=== PATIENT | female | born 1940 | race Two or more races ===

== ENCOUNTER 2016-05-30 13:15 | Inpatient (IN) | payer MEDICARE, MEDICAID ==
[~2016-05-30] VITALS: Ht 152.4 cm; Wt 80.8 kg
[~2016-05-30 13:15] MED LIST: ACET160S PO; ATOR20TA PO; CHOL10002 PO; CLON0.5T PO; DOCU-270 PO; HYDR-4077 PO; INSU100I4 SQ; INSU100V10 SQ; LORA1TAB82 PO; METO5TAB87 PO; MIRT15TA PO; OMEP40CA37 PO; SENN8.6T6 PO; SEVE800T8 PO; VIT1TABL44 PO; ZOLP10TA2 PO
--- NOTE | 2016-05-30 13:15 | NUR ---
BIB EMS C/O L SIDED CHEST PAIN X 3 DAYS PER DAUGHTER. NAD NOTED. PT MOZAMBICAN SPEAKER, AAO X3, RR EVEN AND UNLABORED. PT PLACED IN MONITOR. DR MANNING AT BEDSIDE FOR EVAL.
[2016-05-30 13:59] LABS: BASOPHILS # (AUTO) 0.1 /CMM (0.0-0.2); BASOPHILS % (AUTO) 1.5 % (0.0-2.0); EOSINOPHILS # (AUTO) 0.2 /CMM (0.0-0.7); EOSINOPHILS % (AUTO) 2.2 % (0.0-6.0); HEMATOCRIT 35 % (33-45); HEMOGLOBIN 11.4 g/dL (11.5-14.8); LYMPHOCYTES # (AUTO) 1.6 /CMM (0.8-4.8); LYMPHOCYTES % (AUTO) 21.4 % (20.0-44.0); MEAN CORPUSCULAR HEMOGLOBIN 33 PG (26.0-33.0); MEAN CORPUSCULAR HGB CONC 33 g/dl (31.0-36.0); MEAN CORPUSCULAR VOLUME 100 fL (82-100); MONOCYTES # (AUTO) 0.7 /CMM (0.1-1.30); MONOCYTES % (AUTO) 9.5 % (2.0-12.0); NEUTROPHILS # (AUTO) 4.8 /CMM (1.8-8.9); NEUTROPHILS % (AUTO) 65.4 % (43.0-81.0); PLATELET COUNT (AUTO) 171 /CMM (150-450); RDW COEFFICIENT OF VARIATION 15.4 (11.5-15.0); RED BLOOD CELL COUNT(AUTO) 3.49 MIL/uL (4.0-5.2); WHITE BLOOD COUNT (AUTO) 7.4 K/uL (4.3-11.0)
[2016-05-30 14:14] LABS: CALCIUM, SERUM 8.7 mg/dL (8.5-10.1); CARBON DIOXIDE 30 mmol/L (21-32); CHLORIDE 100 mmol/L (98-107); CREATININE 4.1 mg/dL (0.6-1.3); GLUCOSE 87 mg/dL (74-106); POTASSIUM 4.8 mmol/L (3.5-5.1); SODIUM SERUM 135 mmol/L (136-145); UREA NITROGEN, BLOOD 54 mg/dL (7-18)
[2016-05-30 14:16] LABS: INR 0.95 (0.87-1.13); PROTHROMBIN TIME 9.9 SECS (9.5-12.7)
[2016-05-30 14:24] LABS: TROPONIN I < 0.017 ng/mL (0.00-0.056)
--- NOTE | 2016-05-30 15:10 | NUR ---
PAGED DR JONATHON BRAUN
--- NOTE | 2016-05-30 15:38 | NUR ---
REPAGED DR JONATHON BRAUN.
[2016-05-30] MEDS ORDERED: IV SET PRIMARY PUMP SET 1 EA INFUS.SET MC ONE (15:57)
[2016-05-30] MEDS ORDERED: CEFTRIAXONE 1GM BAG (ER ONLY) 50 ML IV ONE (15:57)
[2016-05-30] MEDS ORDERED: AZITHROMYCIN 500 MG in IV D5W 250 ML IV ONE (16:00)
[2016-05-30] MEDS ORDERED: CEFTRIAXONE 1 G in IV D5W 50 ML IV ONE (16:00)
--- NOTE | 2016-05-30 16:14 | NUR ---
Mariella khoury in [facility] - 05/30/16 at 1619 by OZZY PATIENT ASSIGNED TO [facility] 311-1 ADMITTING DX PNEUMONIA, ACCEPTED BY DR HARRY KEANRS
--- NOTE | 2016-05-30 16:15 | NUR ---
PATIENT ASSIGNED TO TELE 311-1 ADMITTING DX PNEUMONIA, ACCEPTED BY DR JONATHON BRAUN
--- NOTE | 2016-05-30 16:24 | NUR ---
REPORT GIVEN TO LONI CAMPBELL FOR DEL
[2016-05-30] MEDS ORDERED: AMIN887L PO (16:57)
[2016-05-30] MEDS ORDERED: CHOL100030 PO (17:07)
[2016-05-30] MEDS ORDERED: MELA3TAB PO (17:07)
[2016-05-30] MEDS ORDERED: TRAM50TA2 PO (17:07)
[2016-05-30] MEDS ORDERED: NUT.237L67 PO (17:07)
[2016-05-30 17:30] VITALS: BP 107/52
--- NOTE | 2016-05-30 18:15 | NUR ---
PT. BROUGHT UP FROM ER.ORIENTED TO RM.HOOKED UP TO TELE-RHYTHM SINUS RATE OF 75.AZITHROMYCIN PIGGY BACK IV RESET IN PUMP.NOTED FEW PINK SPOTS ON BUTTOCKS CHEEKS-APPARENTLY HEALED SCARS AND BRUISING ON ARMS.SIDE RAILS UP AND CALL LIGHT IN PLACE.PT. YI SPEAKING.TEXTED DR. BRAUN FOR ORDERS WELL MED ORDERS.NO TEXT BACK, OF YET.
--- NOTE | 2016-05-30 18:20 | NUR ---
PT. WITH TRACH WITH PMV IN PLACE AND PT. TALKING.
--- NOTE | 2016-05-30 19:20 | NUR ---
PT. ENDORSED TO ANDREA. SHANNAN JIMÉNEZ.
--- NOTE | 2016-05-30 19:30 | NUR ---
WATER RESOURCE ENGINEERING SPECIALIST OPENING NOTES: RECEIVED PATIENT AWAKE IN BED. FAMILY AT BEDSIDE. SINUS RHYTHM 76. A/O X3. RIGHT IV AC#20 INTACT AND PATENT. KEPT CLEAN, DRY, AND COMFORTABLE. N/C 3LPM AND TOLERATED WELL. RECEIVED ADMISSION HISTORY FROM FAMILY MEMBER (DAUGHTER). CALL LIGHT WITHIN PT REACH. SIDE RAILS UP X2. WILL CONTINUE TO MONITOR PATIENT.
[2016-05-30 20:00] VITALS: BP 123/54
--- NOTE | 2016-05-30 20:11 | NUR ---
MS TELE NOTES: SPOKE TO VICTORINA ARTEAGA AND RECEIVED ADMISSION ORDER. ORDER NOTED AND CARRIED OUT.
[2016-05-30] MEDS ORDERED: DEXTROSE 50%-WATER 50 ML DISP.SYRIN IV PRN (20:30)
[2016-05-30] MEDS ORDERED: hydrALAZINE HCL 50 MG TABLET PO SCH ×2 (20:30→21:00)
[2016-05-30] MEDS ORDERED: PROSOURCE / PROSTAT (PYXIS) 30 ML UDC ONE (21:52)
[2016-05-30] MEDS: RENAL NOVASOURCE (8OZ) 1 EA BOX PO SCH (21:56)
[2016-05-30] MEDS: clonazePAM 0.5 MG TABLET PO SCH (21:57)
[2016-05-30] MEDS: ATORVASTATIN 40 MG TABLET PO SCH (21:57)
[2016-05-30] MEDS: METOCLOPRAMIDE HCL 10 MG TABLET PO SCH (21:57)
[2016-05-30] MEDS: MIRTAZAPINE 15 MG TABLET PO SCH (21:57)
[2016-05-30] MEDS: hydrALAZINE HCL 50 MG TABLET PO SCH (21:58)
[2016-05-30] MEDS: SENNOSIDES 8.6 MG TABLET PO SCH (21:59)
[2016-05-30] MEDS: PROSOURCE / PROSTAT (PYXIS) 30 ML UDC PO SCH (22:00)
[2016-05-30] MEDS ORDERED: Medication Not On Formulary EA (Melatonin 3 MG) PO SCH (22:00)
[2016-05-30] MEDS: BLOOD SUGAR DIAGNOSTIC 1 EACH STRIP IN SCH (22:02)
[2016-05-30] MEDS: INSULIN DETEMIR 100 UNIT/ML CARTRIDGE SQ SCH (22:14)
[2016-05-30] MEDS: TRAMADOL HCL 50 MG TABLET PO PRN (22:24)
--- NOTE | 2016-05-30 22:24 | NUR ---
MS SHIPLEY RN NOTE: PT RECEIVED ULTRAM 50MG D/T COMPLAINTS OF PAIN IN THE ABDOMEN. VITAL SIGNS STABLE.
[2016-05-30] MEDS ORDERED: ALBUTEROL FS 2.5 MG/0.5 ML VIAL.NEB NEB SCH ×2 (22:30→23:30)
--- NOTE | 2016-05-30 22:51 | NUR ---
MS TELE NOTE: SPOKE TO VICTORINA ARTEAGA. GOT PAIN MEDICATION ORDER. ORDER NOTED AND CARRIED OUT.
[2016-05-30] MEDS ORDERED: IBUPROFEN 600 MG TABLET PO PRN (23:30)
[2016-05-30] MEDS ORDERED: ACETAMINOPHEN 325 MG TABLET PO PRN (23:30)
[2016-05-31] VITALS: BP 126/56
[2016-05-31] MEDS: LORAZEPAM 1 MG TABLET PO PRN ×2 (00:05→14:32)
[2016-05-31] MEDS ORDERED: ALBUTEROL FS 2.5 MG/0.5 ML VIAL.NEB ONE (03:13)
[2016-05-31] MEDS: ALBUTEROL FS 2.5 MG/0.5 ML VIAL.NEB NEB SCH ×6 (03:42→23:06)
[2016-05-31 04:00] VITALS: BP 110/48
[2016-05-31] MEDS: METOCLOPRAMIDE HCL 10 MG TABLET PO SCH ×3 (05:48→21:38)
[2016-05-31] MEDS: BLOOD SUGAR DIAGNOSTIC 1 EACH STRIP IN SCH ×4 (05:56→22:21)
[2016-05-31 06:40] LABS: BASOPHILS # (AUTO) 0.1 /CMM (0.0-0.2); BASOPHILS % (AUTO) 0.7 % (0.0-2.0); EOSINOPHILS # (AUTO) 0.2 /CMM (0.0-0.7); EOSINOPHILS % (AUTO) 2.4 % (0.0-6.0); HEMATOCRIT 33 % (33-45); HEMOGLOBIN 10.6 g/dL (11.5-14.8); LYMPHOCYTES # (AUTO) 2.1 /CMM (0.8-4.8); LYMPHOCYTES % (AUTO) 24.5 % (20.0-44.0); MEAN CORPUSCULAR HEMOGLOBIN 32 PG (26.0-33.0); MEAN CORPUSCULAR HGB CONC 32 g/dl (31.0-36.0); MEAN CORPUSCULAR VOLUME 101 fL (82-100); MONOCYTES % (AUTO) 11.4 % (2.0-12.0); NEUTROPHILS # (AUTO) 5.2 /CMM (1.8-8.9); PLATELET COUNT (AUTO) 173 /CMM (150-450); RDW COEFFICIENT OF VARIATION 16.1 (11.5-15.0); RED BLOOD CELL COUNT(AUTO) 3.28 MIL/uL (4.0-5.2); WHITE BLOOD COUNT (AUTO) 8.5 K/uL (4.3-11.0)
--- NOTE | 2016-05-31 06:41 | NUR ---
MS SHIPLEY RN CLOSING NOTES: PT A/O X3. PT ON AEROSOL 4LPM AND TOLERATED WELL. PT ON SINUS RHYTHM 76. ALL NEEDS WERE ATTENDED TO. KEPT CLEAN, DRY, AND COMFORTABLE. PT'S BED IN LOCKED, LOWEST POSITION, AND SIDE RAILS X2. R AC #20 IV PATENT AND INTACT. WILL ENDORSE TO DAY SHIFT NURSE.
[2016-05-31 07:09] LABS: THYROID STIMULATING HORMONE 2.233 uIU/mL (0.358-3.74)
--- NOTE | 2016-05-31 07:10 | NUR ---
TELE/RN AM NOTES RECEIVED PATIENT IN BED, AWAKE, ALERT, WITHOUT SOB, NO DISTRESS NOTED, HOB HIGH FOWLERS POSITION, T-PIECE INTACT WITH OXYGEN 5L/M, 28%, TOLERATING WELL 99%. IV LINE INTACT ON RAC, PATENT. AV FISTULA INTACT, WITH BRUIT AND THRILL. NO S/SX BLEEDING NOTED. BED IN LOW POSITION, COMFORTABLE, WITH CALL LIGHT WITHIN EASY REACH. WILL CONTINUE TO MONITOR ACCORDINGLY.
--- NOTE | 2016-05-31 07:30 | NUR ---
MS/RN CLOSING NOTES PATIENT IN BED, AWAKE, ALERT, WITHOUT SOB, NO DISTRESS NOTED, HOB HIGH FOWLERS POSITION, T-PIECE INTACT WITH OXYGEN 5L/M, 28%, TOLERATING WELL 99%. IV LINE INTACT ON RAC, PATENT. AV FISTULA INTACT, WITH BRUIT AND THRILL. NO S/SX BLEEDING NOTED. BED IN LOW POSITION, COMFORTABLE, TURNED REPOSITIONED EVERY 2 HOURS, WOUND TREATMENT DONE, KEPT CLEAN DRY, COMFORTABLE WITH CALL LIGHT WITHIN EASY REACH. WITH CALL LIGHT WITHIN EASY REACH. ENDORSED TO THE CONTRACT MAIL CARRIER NURSE ACCORDINGLY.
[2016-05-31 08:00] VITALS: BP 116/49
[2016-05-31] MEDS: PANTOPRAZOLE 40 MG TABLET.DR PO SCH (08:24)
[2016-05-31] MEDS: DOCUSATE SODIUM 100 MG CAPSULE PO SCH (08:24)
[2016-05-31] MEDS: clonazePAM 0.5 MG TABLET PO SCH ×2 (08:24→21:38)
[2016-05-31] MEDS: VIT B CMPLX 3/FA/VIT C/BIOTIN 1 TAB TABLET PO SCH (08:24)
[2016-05-31] MEDS: CHOLECALCIFEROL 1,000 UNIT TABLET (VIT D3) PO SCH (08:24)
[2016-05-31] MEDS: PROSOURCE / PROSTAT (PYXIS) 30 ML UDC PO SCH ×3 (08:24→17:43)
[2016-05-31] MEDS: hydrALAZINE HCL 50 MG TABLET PO SCH ×2 (08:29→21:37)
[2016-05-31] MEDS: INSULIN DETEMIR 100 UNIT/ML CARTRIDGE SQ SCH ×2 (08:37→21:43)
[2016-05-31] MEDS: CEFTRIAXONE 1 G in IV D5W 50 ML IV SCH (09:16)
[2016-05-31] MEDS: RENAL NOVASOURCE (8OZ) 1 EA BOX PO SCH ×2 (09:16→17:46)
[2016-05-31] MEDS: TRAMADOL HCL 50 MG TABLET PO PRN ×2 (09:17→16:06)
--- NOTE | 2016-05-31 11:14 | NUR ---
DIALYSES DONE, PATIENT IN STABLE CONDITION, 1500 ML FLUID REMOVED
[2016-05-31 12:00] VITALS: BP 118/56
[2016-05-31] MEDS: INSULIN ASPART NOVOLOG 100 UNIT/ML CARTRIDGE SQ PRN ×2 (12:38→17:50)
--- NOTE | 2016-05-31 13:58 | NUR ---
WOUND CARE CONSULT:PATIENT SEEN AND SKIN ASSESSMENT DONE. TRACH VENT PATIENT, ALERT, INCONTINENT OF STOOLS, UNABLE TO TURN AND REPOSITION SELF IN BED, SHUN 14, KEY ISOFLEX LEV BED ORDERED BY NURSING STAFF AND WILL BE PLACED WHEN AVAILABLE IN THE UNIT. SEE SKIN ASSESSMENT FOR TODAY ALONG WITH RECOMMENDATIONS. RECOMMEND MOISTURE PROTECTION AND PRESSURE PREVENTION MEASURES ORDERED. ALL DISCUSSED WITH NURSING STAFF. MD IN AGREEMENT WITH PLAN OF CARE. Addendum: 05/31/16 at 1400 by KASHIF HEART WNDNU Amended: Links added.
[2016-05-31] MEDS: HYDROGEL DRESSING 90 GM TUBE TP SCH (17:41)
[2016-05-31] MEDS: Z GUARD REMEDY 2 OZ OINT TP PRN (17:41)
[2016-05-31] MEDS: Z GUARD REMEDY 2 OZ OINT TP SCH (18:00)
[2016-05-31 20:00] VITALS: BP 124/48
--- NOTE | 2016-05-31 20:00 | NUR ---
MS/RN RECEIVE PATIENT AWAKE, ALERT, ORIENTED, COMFORTABLE, ON T PIECE, NO DISTRESS NOTED, CALL LIGHT IN REACH. WILL MONITOR.
[2016-05-31] MEDS: ATORVASTATIN 40 MG TABLET PO SCH (21:37)
[2016-05-31] MEDS: MIRTAZAPINE 15 MG TABLET PO SCH (21:38)
[2016-05-31] MEDS: SENNOSIDES 8.6 MG TABLET PO SCH (21:42)
[2016-06-01] MEDS: ALBUTEROL FS 2.5 MG/0.5 ML VIAL.NEB NEB SCH ×6 (03:38→23:31)
[2016-06-01] MEDS: METOCLOPRAMIDE HCL 10 MG TABLET PO SCH ×3 (05:21→23:41)
--- NOTE | 2016-06-01 05:25 | NUR ---
MS/RN ACCU CHECK DONE, BLOOD SUGAR 56, PATIENT IS ASYMPTOMATIC, AWAKE, ALERT, ORIENTED, D 50 IV WAS GIVEN ORDERED. WILL MONITOR.
--- NOTE | 2016-06-01 06:22 | NUR ---
MS/RN ACCU CHECK DONE, BS 156. PATIENT AWAKE, ALERT, NO S/S OF HYPO/HYPER GLYCEMIA. ALL NEEDS ATTENDED AT THIS TIME. WILL CONTINUE TO MONITOR.
[2016-06-01] MEDS: BLOOD SUGAR DIAGNOSTIC 1 EACH STRIP IN SCH ×4 (06:46→23:39)
--- NOTE | 2016-06-01 07:12 | NUR ---
MS/RN AM NOTES RECEIVED PATIENT IN BED, AWAKE, ALERT, WITHOUT SOB, NO DISTRESS NOTED, HOB ELEVATED HIGH FOWLERS. T-PIECE INTACT WITH OXYGEN 5L/M, 28%, TOLERATING WELL 99%. IV LINE INTACT ON RAC, PATENT. AV FISTULA WITH BRUIT AND THRILL ON LEFT UPPER ARM. NO S/SX BLEEDING NOTED. BED IN LOW POSITION, COMFORTABLE, WITH CALL LIGHT WITHIN EASY REACH. WILL CONTINUE TO MONITOR ACCORDINGLY.
[2016-06-01 08:00] VITALS: BP 115/52
[2016-06-01] MEDS: PANTOPRAZOLE 40 MG TABLET.DR PO SCH (08:33)
[2016-06-01] MEDS: clonazePAM 0.5 MG TABLET PO SCH ×2 (08:43→23:40)
[2016-06-01] MEDS: DOCUSATE SODIUM 100 MG CAPSULE PO SCH (08:44)
[2016-06-01] MEDS: VIT B CMPLX 3/FA/VIT C/BIOTIN 1 TAB TABLET PO SCH (08:44)
[2016-06-01] MEDS: ASPIRIN EC 81 MG TABLET.DR PO SCH (08:44)
[2016-06-01] MEDS: hydrALAZINE HCL 50 MG TABLET PO SCH ×2 (08:45→23:40)
[2016-06-01] MEDS: PROSOURCE / PROSTAT (PYXIS) 30 ML UDC PO SCH ×3 (08:46→16:12)
[2016-06-01] MEDS: CHOLECALCIFEROL 1,000 UNIT TABLET (VIT D3) PO SCH (08:46)
[2016-06-01] MEDS: HYDROGEL DRESSING 90 GM TUBE TP SCH (08:47)
[2016-06-01] MEDS: Z GUARD REMEDY 2 OZ OINT TP PRN (08:47)
[2016-06-01] MEDS: RENAL NOVASOURCE (8OZ) 1 EA BOX PO SCH ×2 (08:48→16:12)
[2016-06-01] MEDS: CEFTRIAXONE 1 G in IV D5W 50 ML IV SCH (08:51)
[2016-06-01] MEDS: INSULIN DETEMIR 100 UNIT/ML CARTRIDGE SQ SCH ×2 (08:52→23:38)
[2016-06-01] MEDS: Z GUARD REMEDY 2 OZ OINT TP SCH (08:53)
[2016-06-01 10:00] VITALS: BP 115/52
[2016-06-01 10:19] LABS: BASOPHILS # (AUTO) 0.1 /CMM (0.0-0.2); BASOPHILS % (AUTO) 1.1 % (0.0-2.0); EOSINOPHILS # (AUTO) 0.2 /CMM (0.0-0.7); EOSINOPHILS % (AUTO) 2.1 % (0.0-6.0); HEMATOCRIT 33 % (33-45); HEMOGLOBIN 10.6 g/dL (11.5-14.8); LYMPHOCYTES # (AUTO) 1.5 /CMM (0.8-4.8); LYMPHOCYTES % (AUTO) 19.8 % (20.0-44.0); MEAN CORPUSCULAR HEMOGLOBIN 31 PG (26.0-33.0); MEAN CORPUSCULAR HGB CONC 32 g/dl (31.0-36.0); MEAN CORPUSCULAR VOLUME 99 fL (82-100); MONOCYTES # (AUTO) 0.9 /CMM (0.1-1.30); MONOCYTES % (AUTO) 11.5 % (2.0-12.0); NEUTROPHILS # (AUTO) 5.1 /CMM (1.8-8.9); NEUTROPHILS % (AUTO) 65.5 % (43.0-81.0); PLATELET COUNT (AUTO) 151 /CMM (150-450); RDW COEFFICIENT OF VARIATION 16.1 (11.5-15.0); RED BLOOD CELL COUNT(AUTO) 3.37 MIL/uL (4.0-5.2); WHITE BLOOD COUNT (AUTO) 7.8 K/uL (4.3-11.0)
[2016-06-01 10:33] LABS: CALCIUM, SERUM 8.5 mg/dL (8.5-10.1); CREATININE 4.1 mg/dL (0.6-1.3); MAGNESIUM 2.2 mg/dL (1.8-2.4); PHOSPHORUS 3.6 mg/dL (2.5-4.9); POTASSIUM 4.7 mmol/L (3.5-5.1)
[2016-06-01] MEDS: INSULIN ASPART NOVOLOG 100 UNIT/ML CARTRIDGE SQ PRN ×3 (13:18→23:39)
[2016-06-01] MEDS: LORAZEPAM 1 MG TABLET PO PRN (13:19)
--- NOTE | 2016-06-01 13:25 | NUR ---
MS/RN NOTES PATIENT PREFERRED TO HAVE LATE LUNCH, BLOOD GLUCOSE CHECKED 206, INSULIN COVERAGE PER SLIDING SCALE GIVEN 4 UNITS, TOLERATED WELL, WITH GOOD APPETITE,
[2016-06-01] MEDS: TRAMADOL HCL 50 MG TABLET PO PRN (16:12)
--- NOTE | 2016-06-01 19:10 | NUR ---
MS/RN CLOSING NOTES PATIENT IS THE IN BED, AWAKE, ALERT, WITHOUT SOB, HOB HIGH FOWLERS POSITION, T-PIECE INTACT WITH OXYGEN 5L/M, 28%, TOLERATING WELL 99%. SUCTION NEEDED, TOLERATED WELL. IV LINE INTACT ON RAC, PATENT. AV FISTULA INTACT, BRUIT AND THRILL ASSESSED NO S/SX BLEEDING NOTED. BED IN LOW POSITION, COMFORTABLE, TURNED REPOSITIONED EVERY 2 HOURS, WOUND TREATMENT DONE, KEPT CLEAN DRY, COMFORTABLE, WITH CALL LIGHT WITHIN EASY REACH. ENDORSED TO THE SOLIDS CONTROL TECHNICIAN NURSE ACCORDINGLY.
--- NOTE | 2016-06-01 19:30 | NUR ---
MS/RN RECEIVE PATIENT AWAKE, ALERT, ORIENTED, COMFORTABLE, TRACH TO WALL O2 WITH AEROSOL MIST, TOLERATING, NO SIGNS OF DISTRESS NOTED, CALL LIGHT IN REACH. WILL MONITOR.
[2016-06-01 20:00] VITALS: BP 121/57
[2016-06-01] MEDS: MIRTAZAPINE 15 MG TABLET PO SCH (23:40)
[2016-06-01] MEDS: ATORVASTATIN 40 MG TABLET PO SCH (23:40)
[2016-06-01] MEDS: SENNOSIDES 8.6 MG TABLET PO SCH (23:41)
--- NOTE | 2016-06-02 01:34 | NUR ---
MS/RN PATIENT IS SLEEPING AT THIS TIME, AROUSABLE, APPEAR COMFORTABLE, NO SIGNS OF DISTRESS NOTED, CALL LIGHT IN REACH. WILL CONTINUE TO MONITOR.
[2016-06-02] MEDS: ALBUTEROL FS 2.5 MG/0.5 ML VIAL.NEB NEB SCH ×6 (04:01→23:41)
[2016-06-02] MEDS: METOCLOPRAMIDE HCL 10 MG TABLET PO SCH ×3 (05:51→21:51)
--- NOTE | 2016-06-02 06:27 | NUR ---
MS/RN ACCU CHECK DONE, BLOOD SUGAR 89. PATIENT SLEEPING, EASILY AROUSABLE, NO DISTRESS NOTED. ALL NEEDS ATTENDED AT THIS TIME. WILL CONTINUE TO MONITOR.
[2016-06-02] MEDS: BLOOD SUGAR DIAGNOSTIC 1 EACH STRIP IN SCH ×4 (07:30→21:54)
--- NOTE | 2016-06-02 07:37 | NUR ---
RN NOTES RECEIVED PT ASLEEP IN BED WITH NO ACUTE DISTRESS. TRACH IN PLACE ATTACHED TO AEROSOL MIST; NO SOB NOTED. NO DISCOMFORT NOTED; SAFETY ENSURED. NO BLEEDING NOTED FROM HD SITE. WILL MONITOR.
[2016-06-02 08:00] VITALS: BP 122/86
[2016-06-02] MEDS: clonazePAM 0.5 MG TABLET PO SCH ×2 (08:37→21:52)
[2016-06-02] MEDS: PROSOURCE / PROSTAT (PYXIS) 30 ML UDC PO SCH ×3 (08:37→16:26)
[2016-06-02] MEDS: PANTOPRAZOLE 40 MG TABLET.DR PO SCH (08:38)
[2016-06-02] MEDS: DOCUSATE SODIUM 100 MG CAPSULE PO SCH (08:38)
[2016-06-02] MEDS: hydrALAZINE HCL 50 MG TABLET PO SCH ×2 (08:39→21:52)
[2016-06-02] MEDS: CHOLECALCIFEROL 1,000 UNIT TABLET (VIT D3) PO SCH (08:39)
[2016-06-02] MEDS: ASPIRIN EC 81 MG TABLET.DR PO SCH (08:39)
[2016-06-02] MEDS: VIT B CMPLX 3/FA/VIT C/BIOTIN 1 TAB TABLET PO SCH (08:39)
[2016-06-02] MEDS: CEFTRIAXONE 1 G in IV D5W 50 ML IV SCH (08:50)
[2016-06-02] MEDS: RENAL NOVASOURCE (8OZ) 1 EA BOX PO SCH ×2 (08:50→16:26)
[2016-06-02] MEDS: INSULIN DETEMIR 100 UNIT/ML CARTRIDGE SQ SCH ×2 (08:57→21:56)
[2016-06-02] MEDS: HYDROGEL DRESSING 90 GM TUBE TP SCH (08:59)
[2016-06-02] MEDS: Z GUARD REMEDY 2 OZ OINT TP SCH (08:59)
--- NOTE | 2016-06-02 12:02 | NUR ---
RN NOTES POST HD; = 2 LITERS REMOVED QV=[id number]/51; DRESSING INTACT ON HD SITE
[2016-06-02] MEDS: INSULIN ASPART NOVOLOG 100 UNIT/ML CARTRIDGE SQ PRN ×3 (12:14→21:58)
--- NOTE | 2016-06-02 13:07 | NUR ---
RN NOTES PT SEEN AND ASSESSED BY DR BRAUN
[2016-06-02] MEDS: LORAZEPAM 1 MG TABLET PO PRN (15:01)
[2016-06-02 16:00] VITALS: BP 118/46
--- NOTE | 2016-06-02 18:56 | NUR ---
RN CLOSING NOTES MEDS GIVEN DURING THIS SHIFT. TRACH IN PLACE; SUCTIONED NEEDED. TURNED AND REPOSITIONED. NO SIGNIFICANT CHANGES. [id number] ENDORSE TO NEXT SHIFT FOR CONTINUITY OF CARE IN STABLE CONDITION
--- NOTE | 2016-06-02 19:30 | NUR ---
MS/RN PATIENT AWAKE, ALERT, ORIENTED, COMFORTABLE, NO C/O PAIN, NO DISTRESS NOTED, TRACH TO AEROSOL MIST WORKING WELL, FALL RISK. WILL MONITOR.
[2016-06-02] MEDS: SENNOSIDES 8.6 MG TABLET PO SCH (21:52)
[2016-06-02] MEDS: ATORVASTATIN 40 MG TABLET PO SCH (21:53)
[2016-06-02] MEDS: MIRTAZAPINE 15 MG TABLET PO SCH (21:53)
--- NOTE | 2016-06-02 23:52 | NUR ---
MS/RN PATIENT IS SLEEPING AT THIS TIME, AROUSABLE, APPEAR COMFORTABLE, NO SIGNS OF DISTRESS NOTED, CALL LIGHT IN REACH. WILL CONTINUE TO MONITOR.
[2016-06-03] MEDS: ALBUTEROL FS 2.5 MG/0.5 ML VIAL.NEB NEB SCH ×6 (03:09→23:09)
[2016-06-03] MEDS: METOCLOPRAMIDE HCL 10 MG TABLET PO SCH ×3 (04:01→21:57)
[2016-06-03] MEDS: LORAZEPAM 1 MG TABLET PO PRN (04:02)
--- NOTE | 2016-06-03 04:08 | NUR ---
MS/RN PATIENT IS ANXIOUS, ATIVAN PO WAS GIVEN ORDERED. WILL MONITOR.
--- NOTE | 2016-06-03 05:11 | NUR ---
MS/RN PATIENT IS SLEEPING AT THIS TIME, AROUSABLE, NO DISTRESS NOTED, CALL LIGHT IN REACH. WILL CONTINUE TO MONITOR.
[2016-06-03] MEDS: INSULIN ASPART NOVOLOG 100 UNIT/ML CARTRIDGE SQ PRN ×4 (06:36→22:05)
[2016-06-03] MEDS: BLOOD SUGAR DIAGNOSTIC 1 EACH STRIP IN SCH ×4 (06:36→21:59)
--- NOTE | 2016-06-03 06:53 | NUR ---
MS/RN STILL SLEEPING, COMFORTABLE, NO DISTRESS NOTED. ALL NEEDS ATTENDED AT THIS TIME. WILL CONTINUE TO MONITOR.
[2016-06-03 07:09] VITALS: BP 138/56
--- NOTE | 2016-06-03 07:10 | NUR ---
MS RN NOTES RECEIVED PATIENT IN BED, AWAKE. A/O X1-2. ON TRACH. T-PIECE WITH COOL AEROSOL 28% O2 AT 5L. BREATHING EVEN AND NON LABORED, NO SOB NOTED. APPEARS COMFORTABLE IN BED, NO C/O PAIN OR ANY DISCOMFORT. CALL LIGHT WITHIN REACH. WILL CONT TO MONITOR. BED LOW AND LOCKED, SIDE RAILS UP X2.
[2016-06-03 08:00] VITALS: BP 131/61
[2016-06-03] MEDS: CEFTRIAXONE 1 G in IV D5W 50 ML IV SCH (08:20)
[2016-06-03 08:21] VITALS: BP 131/61
[2016-06-03] MEDS: RENAL NOVASOURCE (8OZ) 1 EA BOX PO SCH ×2 (09:09→16:38)
[2016-06-03] MEDS: PROSOURCE / PROSTAT (PYXIS) 30 ML UDC PO SCH ×3 (09:09→16:34)
[2016-06-03] MEDS: DOCUSATE SODIUM 100 MG CAPSULE PO SCH (09:10)
[2016-06-03] MEDS: CHOLECALCIFEROL 1,000 UNIT TABLET (VIT D3) PO SCH (09:10)
[2016-06-03] MEDS: clonazePAM 0.5 MG TABLET PO SCH ×2 (09:10→21:58)
[2016-06-03] MEDS: hydrALAZINE HCL 50 MG TABLET PO SCH ×2 (09:10→21:57)
[2016-06-03] MEDS: PANTOPRAZOLE 40 MG TABLET.DR PO SCH (09:10)
[2016-06-03] MEDS: VIT B CMPLX 3/FA/VIT C/BIOTIN 1 TAB TABLET PO SCH (09:10)
[2016-06-03] MEDS: ASPIRIN EC 81 MG TABLET.DR PO SCH (09:10)
[2016-06-03] MEDS: INSULIN DETEMIR 100 UNIT/ML CARTRIDGE SQ SCH ×2 (09:21→22:04)
[2016-06-03] MEDS: Z GUARD REMEDY 2 OZ OINT TP SCH (09:46)
[2016-06-03] MEDS: HYDROGEL DRESSING 90 GM TUBE TP SCH (09:46)
--- NOTE | 2016-06-03 12:17 | NUR ---
BS 201MG/DL. GIVEN 4 UNITS INSULIN NOVOLOG PER COVERAGE.
[2016-06-03 16:00] VITALS: BP_SYST 123; BP_SYST 124; BP_DIAS 52; BP_DIAS 62
[2016-06-03] MEDS: TRAMADOL HCL 50 MG TABLET PO PRN (16:35)
--- NOTE | 2016-06-03 17:08 | NUR ---
BS 156MG/DL. GIVEN 2 UNITS INSULIN NOVOLOG SQ PER COVERAGE.
--- NOTE | 2016-06-03 18:19 | NUR ---
MS RN CLOSING NOTES PATIENT IN BED, NOT IN DISTRESS. ON TRACH, T-PIECE WITH COOL AEROSOL 28%. BREATHING TX GIVEN BY RT, NO SOB NOTED, ON OXYGEN 5L. BLOOD SUGAR MONITORED. ON ANTIBIOTIC WITH NO ADVERSE REACTION NOTED, AFEBRILE. LEFT UPPER ARM AV SHUNT, NO BLEEDING NOTED. NO C/O PAIN AT THIS TIME. TURN AND REPOSITION. CALL LIGHT WITHIN REACH. FOR XRAY CHEST AND HD TOMORROW 06/04/16. WILL ENDORSE TO CHEF BROILER OR FRY RN FOR CONTINUITY OF CARE.
[2016-06-03 20:11] VITALS: BP 126/44
[2016-06-03] MEDS: ATORVASTATIN 40 MG TABLET PO SCH (21:56)
[2016-06-03] MEDS: SENNOSIDES 8.6 MG TABLET PO SCH (21:56)
[2016-06-03] MEDS: MIRTAZAPINE 15 MG TABLET PO SCH (21:56)
[2016-06-03 22:00] VITALS: BP 126/44
[2016-06-04] MEDS: ALBUTEROL FS 2.5 MG/0.5 ML VIAL.NEB NEB SCH ×4 (03:19→13:51)
[2016-06-04] MEDS: METOCLOPRAMIDE HCL 10 MG TABLET PO SCH ×2 (05:38→13:57)
--- NOTE | 2016-06-04 06:43 | NUR ---
MS RN NOTE PATIENT STABLE. NO RESPIRATORY DISTRESS. SUCTIONED NEEDED. PICTURES TAKEN OF WOUNDS AND PLACED IN CHART. ALL NEEDS MET AND ATTENDED TO. WILL ENDORSE TO DAY SHIFT FOR DEL.
[2016-06-04] MEDS: BLOOD SUGAR DIAGNOSTIC 1 EACH STRIP IN SCH ×3 (07:30→16:59)
--- NOTE | 2016-06-04 07:30 | NUR ---
RN OPEN NOTES PATIENT IS ALERT, IN BED. BED IN LOW POSITION, LOCKED AND 2 SIDE RAILS ARE UP. NO SIGNS AND SYMPTOMS OF DISTRESS. DENIED PAIN. WILL CONTINUE TO MONITOR AND ASSES PATIENT CONDITION THROUGH OUT MY SHIFT
[2016-06-04 08:00] VITALS: BP 128/48
[2016-06-04] MEDS: RENAL NOVASOURCE (8OZ) 1 EA BOX PO SCH ×2 (08:45→16:54)
[2016-06-04] MEDS: PROSOURCE / PROSTAT (PYXIS) 30 ML UDC PO SCH ×3 (08:45→16:54)
[2016-06-04] MEDS: DOCUSATE SODIUM 100 MG CAPSULE PO SCH (08:46)
[2016-06-04] MEDS: PANTOPRAZOLE 40 MG TABLET.DR PO SCH (08:47)
[2016-06-04] MEDS: CHOLECALCIFEROL 1,000 UNIT TABLET (VIT D3) PO SCH (08:49)
[2016-06-04] MEDS: VIT B CMPLX 3/FA/VIT C/BIOTIN 1 TAB TABLET PO SCH (08:50)
[2016-06-04] MEDS: TRAMADOL HCL 50 MG TABLET PO PRN (08:57)
[2016-06-04] MEDS: ASPIRIN EC 81 MG TABLET.DR PO SCH (08:58)
[2016-06-04] MEDS: hydrALAZINE HCL 50 MG TABLET PO SCH (08:59)
[2016-06-04] MEDS: clonazePAM 0.5 MG TABLET PO SCH (08:59)
[2016-06-04] MEDS: Z GUARD REMEDY 2 OZ OINT TP SCH (09:00)
[2016-06-04] MEDS: HYDROGEL DRESSING 90 GM TUBE TP SCH (09:00)
[2016-06-04] MEDS: INSULIN DETEMIR 100 UNIT/ML CARTRIDGE SQ SCH (09:00)
[2016-06-04] MEDS: CEFTRIAXONE 1 G in IV D5W 50 ML IV SCH (09:00)
--- NOTE | 2016-06-04 09:00 | NUR ---
RN NOTES 0900 RAFAEL HELD DUE TO LOW BLOOD SUGAR OF 84. ROCEPHIN WILL BE ADMINISTERED AFTER DIALYSIS Addendum: 06/04/16 at 1705 by NABOR CORRAL RN IV SITE LEAKED. IV REMOVED. THREE NURSES ATTEMPTED TO OPEN A NEW IV SITE BUT UNSUCCESSFULLY. CHARGE NURSE MADE A PALMA AND TRIED. PATIENT DISCHARGE ORDERS RECEIVED.
[2016-06-04] MEDS ORDERED: SET RED CAP 1 EA INFUS.SET MC ONE (11:16)
[2016-06-04] MEDS ORDERED: SECONDARY IV SET 1 EA INFUS.SET MC ONE (11:16)
[2016-06-04] MEDS ORDERED: ALBUMIN 25% 25 GM in PREMIX 1 EA IV ONE (11:30)
--- NOTE | 2016-06-04 13:52 | NUR ---
RT GAVE TX @ 1352 DUE TO PT FEELING SOB
--- NOTE | 2016-06-04 14:30 | NUR ---
RN NOTES DIALYSIS PATIENT COMPLETED DIALYSIS. 1L OUT
[2016-06-04 16:00] VITALS: BP 118/60
[2016-06-04] MEDS: INSULIN ASPART NOVOLOG 100 UNIT/ML CARTRIDGE SQ PRN (17:01)
--- NOTE | 2016-06-04 18:43 | NUR ---
MEMBERSHIP ASSISTANT NOTES DISCHARGE ORDERS RECEIVED AND CARRY OUT. PATIENT IS DISCHARGED TO [facility]. ALL PERSONAL BELONGING WITH THE PATIENT AT TIME OF DISCHARGE. REPORT WAS GIVEN TO SHANNAN GRAVES AT THE SNF. PATIENT IS GOING TO BE ADMITTED TO ROOM 122-A. PATIENT ID BAND REMOVED. PATIENT DIDN'T HAVE IV SITE DUE TO LEAKAGE AND UNSUCCESSFUL ATTEMPTS TO START A NEW IV LINE. PATIENT WAS TRANSPORTED TO [facility] AND 2 cardiology specialist. NO SIGNS AND SYMPTOMS OF DISTRESS. DENIED PAIN.
== END 2016-06-04 18:36 | DRG 177 ==
LOC: ER 13:18 → TELE 16:57 → MED 05-31 08:52
PROVIDERS: ADMIT Internal Medicine; ATTEND Internal Medicine
PROC: 5A1D60Z (ICD-10-PCS; principal; 2016-05-31)
DX: J69.0 Pneumonitis due to inhalation of food and vomit (principal); N18.6 End stage renal disease; J96.10 Chronic respiratory failure, unspecified whether with hypoxia or hypercapnia; L03.114 Cellulitis of left upper limb; I12.0 Hypertensive chronic kidney disease with stage 5 chronic kidney disease or end stage renal disease; E11.22 Type 2 diabetes mellitus with diabetic chronic kidney disease; I25.10 Atherosclerotic heart disease of native coronary artery without angina pectoris; Z79.899 Other long term (current) drug therapy; Z99.2 Dependence on renal dialysis; Z93.0 Tracheostomy status; Z85.07 Personal history of malignant neoplasm of pancreas; F41.9 Anxiety disorder, unspecified; D63.1 Anemia in chronic kidney disease; E55.9 Vitamin D deficiency, unspecified; Z79.82 Long term (current) use of aspirin
CPT/HCPCS: 31720; 36415; 71010-TC; 80048-TC; 80061-TC; 82652; 82962-TC; 83735-TC; 84100-TC; 84443-TC; 84484-TC; 85025-TC; 85730-TC; 87040-TC; 87081-TC; 90935-TC; 94799-TC; A4216; A4606; A6248; A6402; A7526; J0456; J0696; J1815; J7060; J8597; P9047; Z7610